=== PATIENT | male | born 1995 | race Caucasian/White ===

== ENCOUNTER 2021-12-16 18:08 | Emergency (ER) | payer OTHER, SELFPAY ==
[2021-12-16 19:25] VITALS: BP 115/79; PULSE 95; RESP 22; TEMP 37.1; O2SAT 100
--- NOTE | 2021-12-16 20:13 | ECG_ITS ---
Measurements Intervals [place] Rate: 85 P: 83 NE: 248 QRS: 73 QRSD: 93 T: 0 QT: 350 QTc: 418 Interpretive Statements SINUS RHYTHM WITH FIRST DEGREE AV BLOCK NONSPECIFIC T-WAVE ABNORMALITY BASELINE ARTIFACT BORDERLINE ECG NO PREVIOUS ECG AVAILABLE FOR COMPARISON Electronically Signed On 12-18-2021 16:33:35 CDT by Mike Black M.D.
--- NOTE | 2021-12-16 20:13 | ED.GENADULT ---
HPI - General Adult General Chief complaint: Unspecified Stated complaint: withdrawl opiods Time Seen by Provider: 12/16/21 20:10 Source: patient and family Mode of arrival: ambulatory Limitations: no limitations History of Present Illness HPI narrative: The patient is a 26-year-old male with a history of opiate abuse, presenting to the emergency department for evaluation of nausea, vomiting, anxiety. Patient states he discontinued his opiates 5 days ago, reports he has felt unwell with tremors, increased anxiety, nausea, lack of appetite, diaphoresis. He denies specific chest pain. He reports mild, aching abdominal pain in the center of his abdomen without radiation to the flank, lower pelvis. Denies testicular pain. Denies dysuria, hematuria. He denies fever but reports chills. Patient denies homicidal or suicidal ideation. He reports oral opiate use, denies injection. Denies other drug use. Denies alcohol use. Related Data Home Medications Medication Instructions Recorded Confirmed dextroamphetamine-amphetamine 30 mg PO QAM 12/16/21 [Adderall XR] Allergies Allergy/AdvReac Type Severity Reaction Status Date / Time shellfish derived Allergy Anaphylaxis Verified 12/16/21 19:24 Review of Systems Review of Systems: CONSTITUTIONAL: Denies fever, reports chills, diaphoresis EYES: Denies visual changes, redness, or discharge. ENT: Denies rhinorrhea, congestion, sore throat, or otalgia. CARDIOVASCULAR: Denies chest pain, palpitations, or edema. RESPIRATORY: Denies cough or dyspnea. GASTROINTESTINAL: Reports abdominal pain, nausea, vomiting GENITOURINARY: Denies dysuria or hematuria. SKIN: Denies rash or itching. MUSCULOSKELETAL: Denies back pain, joint pain, reports myalgias NEUROLOGIC: Denies headache, numbness, or weakness. [facility] Social History Social History (Updated 12/16/21 @ 20:32 by Patricia Monteiro MD) Smoking status: Current every day smoker Tobacco type: e-cigarettes/vaping Alcohol intake: never Substance use: former Substance use type: opiates Living arrangements: with family Gender identity (if verbalized by the patient): Male Exam Narrative: GENERAL: Awake, alert, conversant HEAD: Normocephalic, atraumatic. EYES: 2+ PERRLA and EOMI. ENT: Nares clear, no rhinorrhea or epistaxis. Mucous membranes moist. NECK: Supple. CHEST: No respiratory distress, breathing even and non labored HEART: Tachycardic rate, sinus rhythm ABDOMEN:Non distended, non tender EXTREMITIES: Normal range of motion. No edema. SKIN: Warm, dry, no rash. NEURO:No focal deficits. Alert and oriented x3 Course Vital Signs Vital signs: Vital Signs Temperature 37.1 C 12/16/21 19:25 Pulse Rate 95 12/16/21 19:25 Respiratory Rate 22 H 12/16/21 19:25 Blood Pressure 115/79 12/16/21 19:25 Pulse Oximetry 100 12/16/21 19:25 Temperature 37.1 C 12/16/21 19:25 Pulse Rate 86 12/16/21 20:30 Respiratory Rate 22 H 12/16/21 19:25 Blood Pressure 115/79 12/16/21 19:25 Pulse Oximetry 100 12/16/21 19:25 Medical Decision Making MDM Narrative Medical decision making narrative: Patient presenting for evaluation of vomiting, chills, anxiety, abdominal pain in the setting of opiate withdrawal. Patient has been 5 days without opiate medication for which she otherwise was taking daily. Patient states at times he would take up to 20 mg of Percocet daily. At the time of assessment, ABCs are intact and vital signs are stable. He is mildly tachycardic. No significant respiratory distress. Lungs are clear on exam. Patient is alert and oriented without homicidal or suicidal ideation. He is reporting nonspecific abdominal pain but has no reproducible pain on exam. Nontender in all 4 quadrants without rebound, rigidity or guarding. Denies testicular pain, urinary symptoms, flank pain. There are no signs or symptoms to be suggestive of acute intra-abdominal pathology. No focal right lower quadrant t
[2021-12-16 20:30] VITALS: PULSE 86
[2021-12-16] MEDS: SODIUM CHLORIDE 0.9% IV 1,000 ML 999 ML IV CONT (20:32)
[2021-12-16] MEDS: ONDANSETRON INJ 4 MG/2 ML VIAL IV PUSH (20:33)
[2021-12-16 20:43] LABS: Basophils Percent Auto 0.3 % (0.2-1.2); Eosinophils Absolute Auto 0.1 K/mm3 (0-0.3); Eosinophils Percent Auto 1.3 % (0-4.4); Hematocrit 41.5 % (42.0-52.0); Hemoglobin 14.9 g/dL (14.0-18.0); Immature Granulocyte Absolute 0.01 K/mm3 (0.00-0.031); Immature Granulocyte Percent A 0.2 % (0-0.5); Lymphocytes Absolute Auto 1.36 K/mm3 (0.9-3.2); Lymphocytes Percent Auto 22.9 % (18.3-44.2); Mean Corpuscular HGB Conc 35.9 g/dl (32-36); Mean Corpuscular Hemoglobin 32.1 pg (26-34); Mean Corpuscular Volume 89.4 fl (80-100); Mean Platelet Volume 9.8 fl (7.4-10.4); Monocytes Absolute Auto 0.6 K/mm3 (0.1-0.6); Monocytes Percent Auto 9.3 % (2.6-8.5); Neutrophils Absolute Auto 3.9 K/mm3 (1.3-6.7); Platelet Count Result 268 k/mm3 (150-375); Red Blood Count 4.64 M/mm3 (4.6-6.20); Red Cell Distribution Width 10.9 % (11.5-14.5); White Blood Count 5.9 K/mm3 (4.5-10.0)
[2021-12-16] MEDS: LORazepam INJ (*CRX) 2 MG/ML VIAL IV PUSH (20:47)
[2021-12-16 20:54] LABS: Alanine Aminotransferase 44 U/L (4-50); Alkaline Phosphatase 71 U/L (38-126); Anion Gap 11 mmol/L (8-16); Aspartate Amino Transferase 32 U/L (17-59); Bilirubin,Total 0.9 mg/dL (0.2-1.3); Blood Urea Nitrogen 7 mg/dL (9-20); Calcium 9.6 mg/dL (8.4-10.2); Carbon Dioxide 27 mmol/L (22-30); Chloride 101 mmol/L (98-107); Estimated CRCL calculation 132 ml/min; Estimated Glomerular Filt Rate > 60; Glucose 109 mg/dL (65-110); Potassium 3.7 mmol/L (3.4-5.0); Sodium 139 mmol/L (137-145)
[2021-12-16 21:06] LABS: Lipase 48 U/L (23-300)
[2021-12-16] MEDS: DEXTROSE 5%/0.45% SOD CHL 1,000 ML 100 ML IV CONT (22:08)
[2021-12-16 22:13] VITALS: BP 112/98; PULSE 78; RESP 18; O2SAT 100
== END 2021-12-16 22:13 | disposition home or self-care (01) ==
PROVIDERS: Emergency Provider Emergency Medicine
DX: F11.23 Opioid dependence with withdrawal (principal); F17.290 Nicotine dependence, other tobacco product, uncomplicated; I44.0 Atrioventricular block, first degree; R94.31 Abnormal electrocardiogram [ECG] [EKG]
CPT/HCPCS: 36415; 80053; 83690; 85025; 93005; 96361; 96374; 96375; 99284; J2060; J2405; J7030

== ENCOUNTER 2023-07-26 10:49 | Emergency (ER) | payer SELFPAY ==
[2023-07-26 11:15] VITALS: BP 122/78; PULSE 80; RESP 16; TEMP 36.4; O2SAT 100
== END 2023-07-26 11:15 ==
LOC: ANHED 11:57
DX: Z02.83 Encounter for blood-alcohol and blood-drug test (principal)
CPT/HCPCS: 99199